=== PATIENT | male | born 1960 | race Caucasian/White ===

== ENCOUNTER → 2016-11-25 | Outpatient (CLI) | payer OTHER | END | disposition home or self-care (01) | LOC: RAD.S 15:00 | DX: M79.89 Other specified soft tissue disorders (principal) ==

== ENCOUNTER 2016-12-07 16:27 | Emergency (ER) | payer OTHER ==
--- NOTE | 2016-12-09 13:58 | ER ---
ADMIT: 12/07/2016 RM/LOC: ER [facility] MR#: [id number] [address] [address] AMOS LALA [address] [place] [address] Emergency Room Report SEX: M AGE: 56 : 1960 DATE: 12/07/2016 ADDENDUM: CHIEF COMPLAINT: Right testicle pain, right lower quadrant pain, and chest pain. COURSE IN THE EMERGENCY ROOM: Initially, CBC, CMP, troponin, urine and ultrasound of the right testicle were done. The ultrasound showed an epididymitis. UA was clear. CBC was normal except for hemoglobin of 12.4. Chemistries were normal. Troponin was normal. CT of the abdomen showed inflammation of the sigmoid area. I am sending him home with Cipro. He is already on vancomycin for septic knee, which he said has not worsened. It is not any red or more swollen than usual. CLINICAL IMPRESSION: 1. Diverticulitis versus colitis. 2. Epididymitis. 3. Anemia. 4. Septic left knee, currently being treated with vanco. DISPOSITION: Again, I am sending him home with Cipro for 10 days and having him follow up for colonoscopy as soon as possible. RASHID Berger / Lex Jaramillo MD / edenilson JOB #: [id number] CC: Carlos Young MD, Attending Physician [facility] Physician, Family Physician
== END 2016-12-07 21:00 | disposition home or self-care (01) ==
LOC: ER 16:27
DX: N45.1 Epididymitis (principal); D64.9 Anemia, unspecified; M00.9 Pyogenic arthritis, unspecified; Z88.1 Allergy status to other antibiotic agents; Z91.040 Latex allergy status; Z79.82 Long term (current) use of aspirin; Z79.899 Other long term (current) drug therapy

== ENCOUNTER 2016-12-29 09:33 | Day surgery (SDC) | payer OTHER ==
[~2016-12-29] VITALS: Ht 177.8 cm; Wt 89.8 kg
--- NOTE | 2017-01-11 11:26 | OR ---
ADMIT: 12/29/2016 RM/LOC: [facility] MR#: [id number] [address] [address] [place] AMOS Russel [address] [place] [address] Operative/Delivery Room Report SEX: M AGE: 56 : 1960 SURGERY DATE: 12/29/2016 SURGEON: Maynor Gaston MD PREOPERATIVE DIAGNOSES: 1. Epigastric pain. 2. Question of colon mass on CT scan. POSTOPERATIVE DIAGNOSES: 1. Normal appearing upper endoscopy. 2. Extensive sigmoid diverticula. No polyp or mass was noted. PROCEDURE PERFORMED: 1. EGD with biopsies. 2. Colonoscopy. ANESTHESIA: Sedation. ESTIMATED BLOOD LOSS: None. DESCRIPTION OF PROCEDURE: After appropriate informed consent was obtained, the patient was brought to the endoscopy suite. IV sedation was provided. A well-lubricated endoscope was introduced and passed down the esophagus. The entire esophageal mucosa appeared normal. GE junction appeared sharp and distinct, no evidence of any reflux change, no hiatal hernia. The scope was advanced to the stomach. The gastric mucosa appeared normal throughout. The pylorus intubated. Duodenal bulb, second and third portions of the duodenum appeared normal. Scope was then pulled back into the stomach, retroflexed, revealing no hiatal hernia from below. No proximal gastritis or mass. Several biopsies were taken from the antrum and then also biopsies taken of the distal esophagus. The stomach was then deflated and scope withdrawn. I then proceeded with colonoscopy. Rectal exam was normal. No hemorrhoids. No rectal masses. The scope was introduced and passed through the entire length of colon. He had a moderate prep, some liquid stool throughout that I ADMIT: 12/29/2016 RM/LOC: [facility] MR#: [id number] [address] [address] AMOS LALA [address] [place] [address] Operative/Delivery Room Report SEX: M AGE: 56 : 1960 was able to irrigate and suction out. He had extensive sigmoid diverticula, numerous wide mouth diverticula, and lot of tortuosity of sigmoid colon. No stricture or narrowing. No evidence of any acute inflammation. No mass or tumor was noted. The scope was easily advanced to the cecum. The ileocecal valve and appendiceal orifice appeared normal. The ileocecal valve was intubated and terminal ileum appeared normal. The scope was then slowly and carefully withdrawn. Again, the colonic mucosa appeared normal on the way out. The scope was retroflexed in rectum revealing no internal hemorrhoids or rectal masses. The patient tolerated the procedure well and was taken to the recovery room in stable condition. Maynor Gaston MD/ edenilson JOB #: [id number] CC: Maynor Gaston, Attending Physician Mukund Oliveira, Family Physician Mukund Oliveira NP
== END 2016-12-29 12:18 | disposition home or self-care (01) ==
LOC: SSS 09:33
PROC: 0DB38ZX Excision of Lower Esophagus, Via Natural or Artificial Opening Endoscopic, Diagnostic (ICD-10-PCS; principal; 2016-12-29)
PROC: 0DJD8ZZ Inspection of Lower Intestinal Tract, Via Natural or Artificial Opening Endoscopic (ICD-10-PCS; principal; 2016-12-29)
PROC: 0DB68ZX Excision of Stomach, Via Natural or Artificial Opening Endoscopic, Diagnostic (ICD-10-PCS; principal; 2016-12-29)
DX: K29.50 Unspecified chronic gastritis without bleeding (principal); K57.30 Diverticulosis of large intestine without perforation or abscess without bleeding; F17.210 Nicotine dependence, cigarettes, uncomplicated; Z98.890 Other specified postprocedural states; Z96.652 Presence of left artificial knee joint; Z88.0 Allergy status to penicillin; Z79.899 Other long term (current) drug therapy; Z91.040 Latex allergy status; Z79.2 Long term (current) use of antibiotics; Z79.82 Long term (current) use of aspirin